=== PATIENT | female | born 1950 | race Two or more races ===

== ENCOUNTER 2019-07-13 09:04 | Emergency (ER) | payer MEDICARE, BC ==
[2019-07-13 09:15] VITALS: BP 132/74
--- NOTE | 2019-07-13 09:19 | UC ---
Ear Complaint HPI - HPI Summary HPI Summary: Patient presented to urgent care reporting upper head congestion for the last several days. Patient was feeling better yesterday. Patient states last evening she developed pain in the right. Patient states reports that the pain. No analgesic taken. No fevers no chills. Patient states hearing is muffled the right side. Patient states when she opens her close her mouth she feels a popping increased pressure in her ear. Patient does have some mild nasal congestion. Mild sore throat. No cough. No fever, chills, wheeze. Patient to take NyQuil this week but nothing since. Patient was around several sick contacts over the holidays. Patient is not immunocompromised. Patient's medications as entered in the EMR reviewed this visit. - History of Current Complaint Chief Complaint: UCEar Stated Complaint: EAR PAIN Time Seen by Provider: 07/13/19 09:15 Hx Obtained From: Patient Hx Last Menstrual Period: menopausal ?: No Onset/Duration: Gradual Onset Severity Initially: Moderate Severity Currently: Moderate Pain Intensity: 5 - Allergies/Home Medications Allergies/Adverse Reactions: Allergies Allergy/AdvReac Type Severity Reaction Status Date / Time No Known Allergies Allergy Verified 07/13/19 09:15 PMH/Surg Hx/FS Hx/Imm Hx Previously Healthy: Yes - Surgical History Surgical History: Yes Surgery Procedure, Year, and Place: Right Ankle fx repair, Colecystectomy - Family History Known Family History: Positive: Hypertension, Non-Contributory - Social History Occupation: Retired Lives: With Family Alcohol Use: Weekly Substance Use Type: None Smoking Status (MU): Former Smoker Type: Cigarettes Have You Smoked in the Last Year: No When Did the Patient Quit Smoking/Using Tobacco: 10 years ago - Immunization History Hx Tetanus, Diphtheria Vaccination: Yes Vaccination Up to Date: Yes Review of Systems All Other Systems Reviewed And Are Negative: Yes Constitutional: Positive: Negative Skin: Positive: Negative Eyes: Positive: Negative ENT: Positive: Sore Throat, Ear Ache, Nasal Discharge, Sinus Congestion Respiratory: Positive: Negative Cardiovascular: Positive: Negative Physical Exam - Summary Physical Exam Summary: Vital Signs Reviewed: Yes A+Ox3, no distress Eyes: Conjunctiva Clear, MATIAS. EOM intact and full ENT: Hearing grossly normal Right TM: ++ fluid, erythema, slight bulgde left TM - manually moved soft cerumen by me - scant fluid, no erythema, no buldge, turbinates inflammed and boggy, mild PND, mmoist, uvula midline, no exudate, no erythema Neck: Positive: Supple Respiratory: Positive: No respiratory distress, No accessory muscle use + CTA throughout no w/r Cardiovascular: RRR nl s1, s2 no m/r CBT <2 sec abd soft + BS nt/nd no guarding, no distension Musculoskeletal Exam: SARGENT x 4 without difficulty Strength Intact, ROM Intact Neurological: Positive: Alert, + sensation throughout Psychological: Positive: Normal Response To examiner Skin: Positive: no rash, no ecchymosis Triage Information Reviewed: Yes Vital Signs: Initial Vital Signs Temp 98 F 07/13/19 09:12 Pulse 57 07/13/19 09:12 Resp 16 07/13/19 09:12 BP 132/74 07/13/19 09:12 Pulse Ox 100 07/13/19 09:12 Ear Complaint Course/Dx - Course Course Of Treatment: Patient presents to urgent care reporting progressive right ear pain for the last 12 hours. Patient had a head cold and seemed to be getting better until yesterday. Patient do not take any analgesia. On exam vital signs are stable. Patient does have some mild discomfort. Patient with some congestion in her sinus passages with postnasal drip. Patient's right TM examination consistent with otitis media. We'll start antibiotics. Patient precautions discussed. Motrin Tylenol. Flonase. Return precautions. Patient comfortable and agreeable with plan. - Differential Dx/Diagnosis Provider Diagnosis: Right otitis media, Fever Discharge ED - Sign-Out/Discharge Documenting (check all that apply): Patient Departure All imaging exams completed and their final reports reviewed: No Studies - Discharge Plan Condition: Stable Disposition: HOME Prescriptions: Amoxicillin/Clavulanate TAB* [Augmentin TAB 875*] 875 mg PO BID #20 tab Fluticasone NASAL SPRAY 50MCG* [Flonase NASAL SPRAY 50MCG*] 1 spray BOTH NARES DAILY #1 btl Patient Education Materials: Ear Infection (ED), Upper Respiratory Infection ( ED) Referrals: Fanta Hoskins MD [Primary Care Provider] - Additional Instructions: - Stay well hydrated. Drink plenty of non-alcoholic, non-caffinated beverages. - Alternate ibuprofen (Advil, Motrin) 600mg and Tylenol every 3 hours for pain or fever. Take with food. Do NOT take for more than 4-5 days. - These infections are spread by secretions - do NOT share eating or drinking utensils - clean items you share with other people such as cell phones, computer mouse, TV remote, computer tablets,etc. Once you have been antibiotics for 2 days, change your toothbrush and your pillowcase. - get plenty of restful sleep - humidify the air in the room where you sleep - boil water, run a hot steam shower, vaporizer, cups of water by heat register - okay to take over the counter decongestant and cough medication - use nasal spray as prescribed - contact your doctor or return with questions or concerns - Billing Disposition and Condition Condition: STABLE Disposition: Home
== END 2019-07-13 09:35 | disposition home or self-care (01) ==
LOC: UCEAST 09:04
DX: H66.91 Otitis media, unspecified, right ear (principal); R50.9 Fever, unspecified; J02.9 Acute pharyngitis, unspecified; R09.89 Other specified symptoms and signs involving the circulatory and respiratory systems; R09.81 Nasal congestion; Z87.891 Personal history of nicotine dependence
CPT/HCPCS: 99212; G0463

== ENCOUNTER 2023-06-14 09:32 | Observation (INO) ==
[~2023-06-14 09:32] MED LIST: Buffered Lidocaine 1% SYRIN 1 ml INTRADERM ONE; Dexamethasone IV 4 MG/ML VIAL 1 ml VIAL ONE; Lactated Ringers 1000 ml BAG 1,000 ML IV SCH; Lidocaine 2% PF 5 ML VIAL ONE; Midazolam 2 mg/2 ml VIAL 1 mg/ml 2 ml VIAL (2 mg) ONE; Naloxone 0.4 mg VIAL 0.4 mg/ml 1 ml VIAL IV PRN; Ondansetron 4 mg VIAL 2 MG/ML 2 ml VIAL IV PRN; Ondansetron 4 mg VIAL 2 MG/ML 2 ml VIAL ONE; Phenylephrine IV 10 MG/ML 1 ml VIAL ONE; Rocuronium 50 mg VIAL 10 mg/ml 5 ml VIAL (50 mg) ONE; fentaNYL 100 mcg/2 ml 50 MCG/ML VIAL IV PRN; fentaNYL 100 mcg/2 ml 50 MCG/ML VIAL ONE
[2023-06-14] MEDS ORDERED: Bupivacaine 0.5% SDV PF 30ML VIAL ONE ×2 (09:58→12:36)
[2023-06-14] MEDS ORDERED: Vancomycin 1,000 MG VIAL ONE (09:58)
[2023-06-14] MEDS ORDERED: ceFAZolin 2 GM in NS PREMIX 2 GM/100 ML BAG IVPB ONE (10:25)
[2023-06-14 10:47] LABS: Rapid COVID-19 Molecular Undetected (Undetected)
[2023-06-14] MEDS ORDERED: Dexamethasone IV 4 MG/ML VIAL 1 ml VIAL ONE (11:29)
[2023-06-14] MEDS ORDERED: ROPIVACAINE 5 MG/ML 30 ML BTL (0.5%) ONE (11:29)
[2023-06-14] MEDS ORDERED: Acetaminophen IV 1 GM/100ML 1,000 MG/100 ML BAG IV ONE (12:50)
[2023-06-14] MEDS ORDERED: Tranexamic Acid 1,000 MG/10 ML SDV ONE (13:01)
[2023-06-14] MEDS ORDERED: Midazolam 2 mg/2 ml VIAL 1 mg/ml 2 ml VIAL (2 mg) ONE (13:18)
[2023-06-14] MEDS ORDERED: Propofol 10 MG/ML 20 ML BTL ONE (15:46)
[2023-06-14] MEDS ORDERED: Ondansetron 4 mg VIAL 2 MG/ML 2 ml VIAL IV PRN (17:37)
[2023-06-14] MEDS ORDERED: Magnesium Hydroxide LIQ 30 ML UDC PO PRN (17:37)
[2023-06-14] MEDS ORDERED: Morphine 2 MG/ML SYRINGE IV PRN (17:37)
[2023-06-14] MEDS ORDERED: Ondansetron ODT 4 mg TAB 4 MG TAB PO PRN (17:37)
[2023-06-14] MEDS ORDERED: Lactulose 30 ml UDC PO PRN (17:37)
[2023-06-14] MEDS: Lactated Ringers 1000 ml BAG 1,000 ML IV SCH (18:39)
[2023-06-14] MEDS: Magnesium Hydroxide LIQ 30 ML UDC PO SCH (22:27)
[2023-06-14] MEDS: ceFAZolin 1 GM in Dextrose 1 GM/50 ML BAG IV SCH (22:34)
[2023-06-15] MEDS ORDERED: Polyethylene Glycol 3350 17 GM PACKET PO PRN (00:01)
[2023-06-15] MEDS: Lactated Ringers 1000 ml BAG 1,000 ML IV SCH (05:04)
[2023-06-15] MEDS: ceFAZolin 1 GM in Dextrose 1 GM/50 ML BAG IV SCH ×2 (05:14→13:29)
[2023-06-15 06:29] LABS: Hematocrit 32.6 % (35-45); Hemoglobin 11.1 g/dL (11.5-14.3); Mean Platelet Volume 7.2 fL (7.5-11.2); Platelet Count 283 10^3/uL (150-450)
[2023-06-15 07:20] LABS: Calcium 8.8 mg/dL (8.6-10.3); Creatinine, Serum 0.74 mg/dL (0.51-0.95); Potassium 4.3 mmol/L (3.5-5.0); eGFR CKD-EPI 85.9 (>60)
[2023-06-15] MEDS: Magnesium Hydroxide LIQ 30 ML UDC PO SCH (07:47)
[2023-06-15] MEDS ORDERED: Vitamin THERAPEUTIC TAB PO SCH (09:00)
[2023-06-15 13:45] VITALS: BP 117/69
== END 2023-06-15 14:31 | disposition home or self-care (01) ==
LOC: INTOOBSV 09:32 → AA 09:32 → SSU 11:48
PROVIDERS: ADMIT Orthopaedic Surgery; ATTEND Orthopaedic Surgery